=== PATIENT | male | born 1990 | race Caucasian/White ===

== ENCOUNTER 2024-05-08 07:11 | Emergency (ER) | payer OTHER ==
[~2024-05-08] VITALS: Ht 180.3 cm; Wt 104.3 kg
== END 2024-05-08 08:50 | disposition home or self-care (01) ==
LOC: ER 07:11
DX: K62.5 Hemorrhage of anus and rectum (principal)
CPT/HCPCS: 99284

== ENCOUNTER 2025-05-11 14:13 | Emergency (ER) | payer OTHER ==
[~2025-05-11] VITALS: Ht 180.3 cm; Wt 117.9 kg
== END 2025-05-11 19:04 | disposition home or self-care (01) ==
LOC: ER 14:13
DX: S30.11XA Contusion of abdominal wall, initial encounter (principal); X58.XXXA Exposure to other specified factors, initial encounter
CPT/HCPCS: 74177; 76857; 99283-25; Q9967